=== PATIENT | male | born 1965 | race Caucasian/White ===

== ENCOUNTER 2016-07-22 16:04 | Emergency (ER) | payer SELFPAY ==
[~2016-07-22] VITALS: Ht 177.8 cm; Wt 84.4 kg
[2016-07-22] MEDS ORDERED: SODIUM CHLORIDE 0.9% 1,000 ML IVB ONE (16:20)
[2016-07-22 16:39] VITALS: BP 123/88
[2016-07-22 16:43] LABS: Basophils # (auto) 0 uL; Basophils % (auto) 0.6 % (0.0-2.0); DEFINITIVE VIEW TRANSMISSION; Eosinophils # (auto) 0 uL; Eosinophils % (auto) 0.3 % (0.0-7.0); Hematocrit 42.6 % (41.0-53.0); Hemoglobin 14.6 g/dL (13.5-17.5); Lymphocytes # (auto) 0.4 uL; Lymphocytes % (auto) 8.8 % (10.0-50.0); Mean Corpuscular Hgb Conc. 34.3 g/dL (32.0-36.0); Mean Corpuscular Volume 101.8 fL (80.0-100.0); Mean Platelet Volume 7.1 fL (7.4-10.4); Monocytes # (auto) 0.3 uL; Monocytes % (auto) 7.9 % (0.0-12.0); Neutrophils # (auto) 3.5 uL; Neutrophils % (auto) 82.4 % (37.0-80.0); Platelet Count (auto) 169 10^3/uL (140-450); Red Cell Distribution Width 14.6 % (11.6-16.0); White Blood Cell 4.2 10^3/uL (4.4-10.8)
[2016-07-22 16:52] LABS: INR 1.04 (0.9-1.15); Partial Thromboplastin Time 25.4 sec (22.64-33.71); Prothrombin Time 10.7 sec (9.37-12.3)
[2016-07-22 17:37] LABS: Albumin 4.6 g/dL (3.4-5.0); Alkaline Phosphatase 115 U/L (45-117); Anion Gap 13 (5-15); Aspartate Aminotransferase 347 U/L (15-37); BUN/Creatinine Ratio 5.5; Blood Urea Nitrogen 4 mg/dL (7-18); Calcium 9.2 mg/dL (8.5-10.1); Carbon Dioxide 27 mmol/L (21-32); Chloride 100 mmol/L (98-107); GFR African American 147 mL/min; GFR Non-African American 121 mL/min; Glucose 119 mg/dL (74-106); Potassium 4.4 mmol/L (3.5-5.1); Sodium 140 mmol/L (136-145)
== END 2016-07-22 18:21 | disposition home or self-care (01) ==
LOC: ER 16:04
DX: K70.10 Alcoholic hepatitis without ascites (principal)
CPT/HCPCS: 36415; 70450; 80053; 80320; 84484; 85025; 85610; 85730; 93005; 96360; 99285; J7030

== ENCOUNTER 2018-09-14 16:49 | Emergency (ER) | payer MEDICAID ==
[~2018-09-14] VITALS: Ht 182.9 cm; Wt 76.2 kg
[2018-09-14 17:03] VITALS: BP 152/99
[2018-09-14] MEDS ORDERED: KETOROLAC TROMETH 60MG/2ML VIAL IM ONE (18:00)
== END 2018-09-14 18:22 | disposition home or self-care (01) ==
LOC: ER 16:49
DX: S63.502A Unspecified sprain of left wrist, initial encounter (principal); W22.8XXA Striking against or struck by other objects, initial encounter; Y93.89 Activity, other specified; Y99.8 Other external cause status; Y92.89 Other specified places as the place of occurrence of the external cause
CPT/HCPCS: 29125; 73110; 73130; 96372; 99283; J1885

== ENCOUNTER 2019-12-18 13:29 | Emergency (ER) | payer MEDICAID ==
[~2019-12-18] VITALS: Ht 182.9 cm; Wt 74.8 kg
[2019-12-18 13:59] VITALS: BP 148/85
[2019-12-18] MEDS ORDERED: HYDROcodone-ACET 5/325MG TAB PO ONE (15:00)
== END 2019-12-18 15:14 | disposition home or self-care (01) ==
LOC: ER 13:29
DX: S22.41XA Multiple fractures of ribs, right side, initial encounter for closed fracture (principal); I10 Essential (primary) hypertension; X58.XXXA Exposure to other specified factors, initial encounter; Y93.89 Activity, other specified; Y92.89 Other specified places as the place of occurrence of the external cause; Y99.8 Other external cause status
CPT/HCPCS: 71046

== ENCOUNTER 2020-12-03 11:44 | Emergency (ER) | payer MEDICAID ==
[~2020-12-03] VITALS: Ht 172.7 cm; Wt 68.0 kg
[2020-12-03 13:35] LABS: Basophils # (auto) 0 10 ^3/uL (0-0.2); Eosinophils # (auto) 0 10 ^3/uL (0-0.8); Lymphocytes # (auto) 0.2 10 ^3/uL (0.4-5.4); Mean Corpuscular Hemoglobin 34.5 pg (28.0-32.0); Monocytes # (auto) 0.4 10 ^3/uL (0-1.3); Neutrophils # (auto) 5.5 10 ^3/uL (1.6-8.6); White Blood Cell 6.1 10^3/uL (4.4-10.8)
[2020-12-03 13:37] LABS: Basophils % (auto) 0.2 % (0.0-2.0); Hematocrit 40.8 % (41.0-53.0); Lymphocytes % (auto) 3.4 % (10.0-50.0); Mean Corpuscular Hgb Conc. 34.4 g/dL (32.0-36.0); Mean Corpuscular Volume 100.1 fL (80.0-100.0); Neutrophils % (auto) 90.4 % (37.0-80.0); Red Blood Cells 4.07 10^6/uL (4.5-5.90); Red Cell Distribution Width 15.2 % (11.8-14.3)
[2020-12-03 13:58] LABS: Potassium 3.8 mmol/L (3.5-5.1)
[2020-12-03 13:59] LABS: Albumin 4.2 g/dL (3.4-5.0); Calcium 9.5 mg/dL (8.5-10.1)
[2020-12-03 14:03] LABS: BUN/Creatinine Ratio 12.9; Bilirubin, Total 1.8 mg/dL (0.2-1.0); Total Protein 8.1 g/dL (6.4-8.2)
[2020-12-03] MEDS ORDERED: SODIUM CHLORIDE 0.9% 1,000 ML IV ONE (16:00)
[2020-12-03 19:24] VITALS: BP 124/84
== END 2020-12-03 20:50 | disposition home or self-care (01) ==
LOC: EDBD 11:44 → ER 11:44
DX: D69.6 Thrombocytopenia, unspecified (principal); R79.89 Other specified abnormal findings of blood chemistry; I10 Essential (primary) hypertension
CPT/HCPCS: 36415; 70450; 71045; 72125; 73080; 73120; 80053; 80164; 80320; 85025; 96360; 99285; J7030